=== PATIENT | male | born 2005 | race Caucasian/White ===

== ENCOUNTER 2025-08-07 07:21 | Day surgery (SDC) | payer BC ==
[2025-08-05 15:22] VITALS: BMI 19.0
[2025-08-07] MEDS ORDERED: AFRIN NASAL MIST 15 ML BOT ONE ×2 (08:37→10:07)
[2025-08-07] MEDS ORDERED: PROPOFOL 20 ML ONE (09:44)
[2025-08-07] MEDS ORDERED: Bacitracin 1 PK ONE (09:44)
[2025-08-07] MEDS ORDERED: Lidocaine 1% w/Epinephrine 1:200K 30 ML VIAL ONE (09:44)
[2025-08-07] MEDS ORDERED: Oxymetazoline HCl 0.05% (15 ML) ONE (10:09)
[2025-08-07] MEDS ORDERED: HYDROcodone/Acetaminophen 5/325 mg Tablet ONE (11:41)
== END 2025-08-07 13:00 | disposition home or self-care (01) ==
LOC: CSHSDC 07:21
PROVIDERS: ATTEND Otolaryngology Plastic Surgery within the Head & Neck
PROC: 099Q8ZZ Drainage of Right Maxillary Sinus, Via Natural or Artificial Opening Endoscopic (ICD-10-PCS; principal; 2025-08-07)
PROC: 099R8ZZ Drainage of Left Maxillary Sinus, Via Natural or Artificial Opening Endoscopic (ICD-10-PCS; principal; 2025-08-07)
PROC: 095L8ZZ Destruction of Nasal Turbinate, Via Natural or Artificial Opening Endoscopic (ICD-10-PCS; principal; 2025-08-07)
DX: J34.2 Deviated nasal septum (principal); J34.3 Hypertrophy of nasal turbinates; J32.8 Other chronic sinusitis; J30.89 Other allergic rhinitis; Z91.018 Allergy to other foods
CPT/HCPCS: J1010; J1100; J2250; J2704; J3010